=== PATIENT | female | born 1995 | race Caucasian/White ===

== ENCOUNTER → 2016-08-04 | Outpatient (CLI) | payer OTHER ==
[2016-08-07 09:39] LABS: AFP MOM See interpretation. (.); AFP VALUE 54.4 ng/mL (.)
[2016-08-07 12:47] LABS: GEST AGE BASED ON As provided (.)
== END ==
LOC: OD 17:00
PROVIDERS: ATTEND Obstetrics & Gynecology
DX: Z36 Encounter for antenatal screening of mother (principal)
CPT/HCPCS: 36415; 82105

== ENCOUNTER 2016-09-05 09:28 | Outpatient (CLI) | payer OTHER ==
[2016-09-05] MEDS ORDERED: RINGERS SOLUTION,LACTATED 1,000 ML IV PRN (09:32)
[2016-09-05] MEDS ORDERED: RINGERS SOLUTION,LACTATED 1,000 ML IV ONE (09:32)
[2016-09-05] MEDS ORDERED: DEXTROSE 5%-LACTATED RINGERS 1,000 ML IV PRN (09:43)
[2016-09-05] MEDS ORDERED: ONDANSETRON HCL INJ/PF 4 MG/2 ML SDV IV ONE (10:00)
--- NOTE | 2016-09-05 10:00 | L&D Flow Sheet ---
LD Flowsheet Datetime Report Generated by CPN: 09/05/2016 10:00 Datetime: 09/05/2016 09:57 Patient Care IV/Blood Work: IV Started; IV Bolus Started (Shireen Davis, RN) Datetime: 09/05/2016 09:50 Vital Signs NBP Sys/Sari/Mean (mmHg): 97 (QS system process) : 67 (QS system process) : 77 (QS system process) Pulse: 64 (QS system process)
[2016-09-05] MEDS ORDERED: ONDANSETRON HCL INJ/PF 4 MG/2 ML SDV ONE (10:02)
[2016-09-05 10:13] LABS: APPEARANCE,URINE CLEAR; BILIRUBIN,URINE NEGATIVE (NEGATIVE); GLUCOSE, URINE NEGATIVE (NEGATIVE); KETONES,URINE NEGATIVE (NEGATIVE); LEUKOCYTE ESTERASE,URINE TRACE (NEGATIVE); NITRITE,URINE NEGATIVE (NEGATIVE); PROTEIN,URINE NEGATIVE (NEGATIVE); URINE SPECIFIC GRAVITY 1.025; UROBILINOGEN,URINE NEGATIVE mg/dL (<2.0)
[2016-09-05 10:34] LABS: URINE BARBITURATES SCREEN NEGATIVE; URINE METHADONE SCREEN NEGATIVE; URINE OPIATES LOW NEGATIVE; URINE PHENCYCLIDINE SCREEN NEGATIVE
--- NOTE | 2016-09-05 12:00 | L&D Flow Sheet ---
LD Flowsheet Datetime Report Generated by CPN: 09/05/2016 12:00 Datetime: 09/05/2016 11:35 Communication Comments: Returned to floor from [facility]/S (Shireen Ryan, RN) Datetime: 09/05/2016 10:59 NBP Sys/Sari/Mean (mmHg): 138 (QS system process) : 56 (QS system process) : 84 (QS system process) Pulse: 86 (QS system process) Communication Comments: Monitors removed for transport to [facility] (Shireen Davis, RN) Datetime: 09/05/2016 10:29 Patient Care Comments: saltine crackers given (Shireen Davis, RN) Datetime: 09/05/2016 10:12 Monitor Interventions for UA: [place] Adjusted (Shireen Davis, MARSHA) Datetime: 09/05/2016 10:08 Pain Scale: 5 (Shireen Davis RN) Pain Presence: Intermittent (FATIMAH Saldivar Pain Type: Cramping; Pressure (FATIMAH Saldivar Pain Location: Abdomen (Shireen Davis RN) Membrane Status: Intact (Shireen Davis RN) Vaginal Bleeding: None (Shireen Davis RN) Level of Consciousness: Fully Conscious (Shireen Davis RN) DTR's/Clonus: DTRs 2+; No Clonus (Shireen Davis RN) Headache: Denies (Shireen Davis RN) Breath Sounds, Left: Clear and Equal (Shireen Davis RN) Breath Sounds, Right: Clear and Equal (Shireen Davis RN) Nausea/Vomiting: Present (Shireen Davis RN) RUQ Epigastric Pain: Denies (Shireen Davis RN) Instructional Method: Verbal; Patient Instructed; Family/Support Person Instructed; Verbalized Understanding (Shireen Davis RN) Plan of Care: Plan of Care Discussed (Shireen Davis RN) Unit Routine: [place] to Room; Call [place]; Bed; Handwashing; Monitoring; Bathroom Privileges (Shireen Davis RN) Datetime: 09/05/2016 10:07 Antiemetics/Antacids: Zofran IV (mg) @ 8 (Shireen Davis RN)
--- NOTE | 2016-09-05 14:00 | L&D Flow Sheet ---
LD Flowsheet Datetime Report Generated by CPN: 09/05/2016 14:00 Datetime: 09/05/2016 13:49 Communication Comments: IV discontinued. Reviewed discharge instructions. Reviewed dehydration and labor precautions. Pt verbalizes understanding and has no questions at this time. (Shireen Davis RN) Datetime: 09/05/2016 13:30 Monitor Mode: External (Shireen Davis RN) Frequency (min): irritability (Shireen Davis RN) Quality: Mild (Shireen Davis RN) Resting Tone (Palpate): Relaxed (Shireen Ryan, RN) Datetime: 09/05/2016 13:01 Patient Care Comments: D50.45%NS bolus complete. LR bag hung for 500ml bolus (Shireen Davis, RN) Datetime: 09/05/2016 13:00 Monitor Mode: External (Shireen Davis, RN) Frequency (min): irritability (Shireen Davis, RN) Quality: Mild (Shireen Davis, RN) Resting Tone (Palpate): Relaxed (Shireen Davis, RN) Datetime: 09/05/2016 12:30 Monitor Mode: External (Shireen Davis, RN) Frequency (min): irritability (Shireen Davis, RN) Quality: Mild (Shireen Davis, RN) Resting Tone (Palpate): Relaxed (Shireen Davis, RN) Datetime: 09/05/2016 12:12 I/O Interventions: Up to BR (Shireen Davis, RN) Datetime: 09/05/2016 12:11 Patient Care Comments: 1st bag of LR done. Bag of D50.45%NS hung. ORders to give 500ml and then change to LR and give 500ml more (Shireen Davis, RN) Datetime: 09/05/2016 12:06 Communication Comments: Cervical length 5.7. Order to continue IV fluids at this time (Shireen Davis RN) Datetime: 09/05/2016 12:00 Monitor Mode: External; Palpation (Shireen Davis RN) Frequency (min): 1-6 (Shireen Davis RN) Quality: Mild (Shireen Davis RN) Duration (sec): 30-70 (Shireen Davis RN) Resting Tone (Palpate): Relaxed (Shireen Davis RN)
== END 2016-09-05 14:02 | disposition home or self-care (01) ==
LOC: LC 09:28
PROVIDERS: ATTEND Obstetrics & Gynecology
PROC: 4A1HXCZ Monitoring of Products of Conception, Cardiac Rate, External Approach (ICD-10-PCS; principal; 2016-09-05)
DX: O99.282 Endocrine, nutritional and metabolic diseases complicating pregnancy, second trimester (principal); E86.0 Dehydration; O26.892 Other specified pregnancy related conditions, second trimester; R10.9 Unspecified abdominal pain; Z3A.23 23 weeks gestation of pregnancy
CPT/HCPCS: 59899; 81001; 80307; 76815; J2405